=== PATIENT | female | born 1995 | race Caucasian/White ===

== ENCOUNTER 2017-05-17 15:39 | Emergency (ER) | payer OTHER, MEDICAID ==
--- NOTE | 2017-05-17 16:13 | EDPHY ---
General Narrative: CHIEF COMPLAINT: Dizziness HISTORY OF PRESENT ILLNESS: Patient complains of 3 days history of dizziness, nausea. This was sudden onset. It seems to be positional with her head movements. It is also worse at night when she lays down to go to bed in the morning when she stands up out of bed. She describes it as a spinning sensation, nausea and 1 episode of diaphoresis. She has had no chest pain of any kind. No shortness of breath. No headache. No neck pain or stiffness. No redness or pain of the calf or upper extremities. She did have surgery on April 28, left knee surgery. She has had no complications from this. She went to an urgent care today prior to this , and they sent her to our facility for higher level of care. No other associated complaints or modifying factors. REVIEW OF SYSTEMS: Ten systems reviewed and are negative unless otherwise noted in the HPI PCP: None locally SPECIALISTS: None PAST MEDICAL HISTORY: Orthopedic injuries PAST SURGICAL HISTORY: Left knee arthroscopy and lateral release on April 28, 2017 SOCIAL HISTORY: Nonsmoker. Originally from [facility]. [employer] student FAMILY HISTORY: Noncontributory EXAMINATION General Appearance: Alert, no distress Head: normocephalic, atraumatic Eyes: Pupils equal and round, no conjunctival pallor or injection. Horizontal nystagmus. No vertical nystagmus ENT, Mouth: Mucous membranes moist Neck: Normal inspection, supple, non-tender Respiratory: Lungs are clear to auscultation No wheezing, rhonchi or crackles Cardiovascular: Regular rate and rhythm. No murmur. Symmetric radial pulses 2+ . Gastrointestinal: Abdomen is soft and nontender Back: non-tender, no bony abnormalities Neurological: A&O, nonfocal, normal gait Skin: Warm and dry, no rash. No erythema or edema of the calves. There is edema of the left knee surgical site. Clean dry intact incisions. Extremities: Nontender, no pedal edema. Left knee range of motion not tested due to postoperative state. No evidence of DVT on examination of the extremities. Psychiatric: Mood and affect normal DIFFERENTIAL DIAGNOSES: Including but not limited to dehydration, vertigo, PE, near syncope, vasovagal MDM: 4:13 p.m. Intermittent dizziness with spinning sensation, nausea that seems to be related to BPPV. Patient has no chest pain. She has no shortness of breath. She has no complaints that would suggest DVT or PE. Vital signs are within normal limits. She has symptoms that worsen with lateral flexion of the neck, seeming left greater than right. She does have horizontal nystagmus with this. I do not feel she warrants any further workup at this time as she is not vomiting and does not appear clinically dehydrated. I will trial her on meclizine and obtain orthostatic vital signs. I will re-evaluate after this 4:35 p.m. Orthostatic vital signs negative. Discharged home with prescription for meclizine. She is instructed to increase her fluid intake, rest, avoid driving or dangerous activities. She is provided the ENT physician for outpatient follow-up. She has ED precautions for worsening symptoms, headache, any chest pain or shortness of breath, any redness or pain of the calves, any loss of consciousness. She is comfortable this plan and discharged home in stable condition. SUPERVISION: Patient was independently examined, but I discussed the case with my secondary supervising physician Dr. Villeda - History Smoking Status: Never smoked - Objective Vital Signs: Initial Vital Signs Temperature (C) 98.4 F 05/17/17 15:46 Heart Rate 69 05/17/17 15:46 Respiratory Rate 18 05/17/17 15:46 Blood Pressure 130/55 H 05/17/17 15:46 O2 Sat (%) 98 05/17/17 15:46 O2 Delivery Mode Room Air Allergies/Adverse Reactions: Penicillins Allergy (Verified 05/17/17 15:45) Home Medications: Medication Instructions Recorded Meclizine HCl [Meclizine HCl 25 mg 25 mg PO BID PRN #10 tab 05/17/17 (RX,OTC)] Departure - Departure Disposition: Home, Routine, Self-Care Clinical Impression: Vertigo Condition: Good Instructions: Vertigo (ED), Dizziness (ED) Additional Instructions: 1. Meclizine as prescribed as needed 2. Contact the on-call ENT physician as provided 3. ED precautions for worsening symptoms, vomiting, any chest pain or shortness of breath, loss of consciousness Referrals: Al Buckner MD [Medical Doctor] - As per Instructions Stand Alone Forms: School Excuse Prescriptions: Meclizine HCl [Meclizine HCl 25 mg (RX,OTC)] 25 mg PO BID PRN #10 tab PRN Reason: Dizziness
[2017-05-17] MEDS ORDERED: MECLIZINE HCL 25 MG TAB PO ONE (16:14)
[2017-05-17 16:22] VITALS: BP 113/57; PULSE 72
[2017-05-17 16:48] VITALS: RESP 16; TEMP 97.9; O2SAT 96
== END 2017-05-17 16:48 | disposition home or self-care (01) ==
DX: R42 Dizziness and giddiness (principal)